=== PATIENT | male | born 1990 | race American Indian/Alaskan Native ===

== ENCOUNTER 2016-12-02 07:37 | Emergency (ER) | payer MEDICAID, OTHER ==
[2016-12-02 07:53] VITALS: RESP 18; TEMP 98
--- NOTE | 2016-12-02 09:04 | C.PDOC ---
History Of Present Illness 25-year-old male, presents to the emergency department with complaints of watery eyes, runny nose and sore throat for the past two days. States symptoms consistent with seasonal allergies. Denies nausea/vomiting, fevers, chills or any other associated symptoms. No other complaints at this time. Time Seen by Provider: 12/02/16 08:02 Chief Complaint (Nursing): ENT Problem History Per: Patient History/Exam Limitations: no limitations Past Medical History Reviewed: Historical Data, Nursing Documentation, Vital Signs Vital Signs: Last Vital Signs Temp 98.0 F 12/02/16 07:51 Pulse 78 12/02/16 09:26 Resp 18 12/02/16 09:26 BP 112/72 12/02/16 09:26 Pulse Ox 97 12/02/16 09:26 - Medical History PMH: Asthma Surgical History: Appendectomy - [facility] Procedures REPAIR ABDOMINAL WALL, PERCUTANEOUS ENDOSCOPIC APPROACH (07/17/16) RESECTION OF APPENDIX, PERCUTANEOUS ENDOSCOPIC APPROACH (07/17/16) Family History: States: Unknown Family Hx - Social History Hx Alcohol Use: Yes (occationally) Hx Substance Use: No - Immunization History Hx Tetanus Toxoid Vaccination: Yes Hx Influenza Vaccination: No Hx Pneumococcal Vaccination: No Review Of Systems Except As Marked, All Systems Reviewed And Found Negative. Constitutional: Negative for: Fever, Chills Eyes: Negative for: Vision Change ENT: Positive for: Nose Discharge, Throat Pain Respiratory: Negative for: Cough, Shortness of Breath Gastrointestinal: Negative for: Vomiting Skin: Negative for: Rash Neurological: Negative for: Weakness, Numbness, Headache, Dizziness Physical Exam - Physical Exam Appears: Non-toxic, No Acute Distress Skin: Warm, Dry, No Rash Head: Atraumatic, Normacephalic Eye(s): bilateral: Normal Inspection, PERRL Nose: Normal Oral Mucosa: Moist Lips: Normal Appearing Neck: Normal ROM Chest: Symmetrical Cardiovascular: Rhythm Regular ED Course And Treatment O2 Sat by Pulse Oximetry: 95 Disposition - Disposition Referrals: [facility] at [facility] [Outside] Disposition: HOME/ ROUTINE Disposition Time: 09:00 Condition: STABLE Additional Instructions: Follow up in Clinic within 1-2 days. Return to ED if feel worse. Prescriptions: Ketotifen Fumarate [Alaway 10 ml] 1 drop OU Q8 #10 ml Fexofenadine HCl [JanethNf] 180 mg PO DAILY #20 tab Fluticasone Nasal [Flonase] 1 spr NS BID #1 spr Pseudoephedrine HCl [Sudafed 12-Hour] 120 mg PO Q12 #10 tablet.er Instructions: Allergic Rhinitis (ED) Forms: Work Excuse - Clinical Impression Clinical Impression: Hay fever - Scribe Statement The provider has reviewed the documentation as recorded by the Carol Yates All medical record entries made by the Mateusziblinda were at my direction and personally dictated by me. I have reviewed the chart and agree that the record accurately reflects my personal performance of the history, physical exam, medical decision making, and the department course for this patient. I have also personally directed, reviewed, and agree with the discharge instructions and disposition.
[2016-12-02 09:27] VITALS: BP 112/72; PULSE 78
[2016-12-02 17:49] VITALS: O2SAT 95
== END 2016-12-02 09:27 | disposition home or self-care (01) ==
LOC: C.ER 07:37
DX: J30.1 Allergic rhinitis due to pollen (principal)

== ENCOUNTER 2017-10-16 13:17 | Emergency (ER) | payer MEDICAID, OTHER ==
[2017-10-16 13:22] VITALS: BP 151/83; PULSE 69; RESP 20; TEMP 98.5; O2SAT 96
[2017-10-16] MEDS ORDERED: cefTRIAXone 250 MG, Water For Injection 20 ML IM ONE (13:37)
--- NOTE | 2017-10-16 13:40 | C.PDOC ---
History Of Present Illness 43 year old male presents to the ED complaining of urethral discharge, onset this morning. He notes pus-like residue seen on his underwear. Patient admits he engaged in high risk homosexual relations 1 week ago without protection. No prior history of HIV. Denies any penile lesions, dysuria, or urinary frequency. Time Seen by Provider: 10/16/17 13:34 Chief Complaint (Nursing): Male Genitourinary History Per: Patient History/Exam Limitations: no limitations Onset/Duration Of Symptoms: Days (x1) Current Symptoms Are (Timing): Still Present Past Medical History Reviewed: Historical Data, Nursing Documentation, Vital Signs Vital Signs: Last Vital Signs Temp 98.5 F 10/16/17 13:20 Pulse 69 10/16/17 13:20 Resp 20 10/16/17 13:20 BP 151/83 H 10/16/17 13:20 Pulse Ox 96 10/16/17 13:40 - Medical History PMH: Asthma Surgical History: Appendectomy (2017) - [facility] Procedures REPAIR ABDOMINAL WALL, PERCUTANEOUS ENDOSCOPIC APPROACH (07/17/16) RESECTION OF APPENDIX, PERCUTANEOUS ENDOSCOPIC APPROACH (07/17/16) Family History: States: Unknown Family Hx - Social History Hx Alcohol Use: Yes (occationally) Hx Substance Use: No - Immunization History Hx Tetanus Toxoid Vaccination: Yes Hx Influenza Vaccination: No Hx Pneumococcal Vaccination: No Review Of Systems Except As Marked, All Systems Reviewed And Found Negative. Constitutional: Negative for: Fever Gastrointestinal: Negative for: Abdominal Pain Genitourinary: Positive for: Penile Discharge. Negative for: Dysuria, Frequency , Rash, Penile Pain Physical Exam - Physical Exam Appears: Non-toxic, No Acute Distress, Other (Large black male) Skin: Normal Color, Warm, Dry Head: Atraumatic, Normacephalic Eye(s): bilateral: Normal Inspection, PERRL, EOMI Nose: Normal Oral Mucosa: Moist Neck: Normal ROM, Supple Chest: Symmetrical Cardiovascular: Rhythm Regular, No Murmur Respiratory: Normal Breath Sounds, No Accessory Muscle Use Gastrointestinal/Abdominal: Soft, No Tenderness, No Distention Male Genital: Normal Inspection, No Inguinal Tenderness (or lymphadenopathy), Other (Scant urethral discharge. No penile lesions) Extremity: Bilateral: Atraumatic, Normal ROM Neurological/Psych: Oriented x3, Normal Speech ED Course And Treatment O2 Sat by Pulse Oximetry: 96 (RA) Pulse Ox Interpretation: Normal Medical Decision Making Medical Decision Making: Impression: uretheral d/c and high-risk homosexual exposure 1 wk ago Plan: Will treat empirically with Rocephin 250 IM and Azithro 1000 mg PO Refer to STD clinic for further outpatient STD eval Disposition Doctor Will See Patient In The: Office Counseled Patient/Family Regarding: Studies Performed, Diagnosis - Disposition Referrals: [facility] [Outside] [facility] [Outside] Disposition: HOME/ ROUTINE Disposition Time: 13:40 Condition: GOOD Additional Instructions: you were treated w Rocephin 250 mg IM and Azithromycin 1000 mg PO- empiric treatment for GC/Chlamydia No sex for 1 week Have your sex partner(s) checked for STD's- Follow-up in our outpatient STD Clinic @ [facility] for further testing /eval for HIV/Hepatitis/Syphilis Instructions: Chlamydia and Gonorrhea Forms: [facility] (Greek) - POA Present On Arrival: None - Clinical Impression Clinical Impression: Urethral discharge in male - Scribe Statement The provider has reviewed the documentation as recorded by the Carol Handy Provider Attestation: All medical record entries made by the Carol were at my direction and personally dictated by me. I have reviewed the chart and agree that the record accurately reflects my personal performance of the history, physical exam, medical decision making, and the department course for this patient. I have also personally directed, reviewed, and agree with the discharge instructions and disposition.
[2017-10-16] MEDS ORDERED: cefTRIAXone (Rocephin) 250 mg Inj IM ONE (14:00)
== END 2017-10-16 14:12 | disposition home or self-care (01) ==
LOC: C.ER 13:17
DX: R36.9 Urethral discharge, unspecified (principal)
CPT/HCPCS: 87491; 87591; 96372; 99283; J0696

== ENCOUNTER 2017-10-29 17:43 | Emergency (ER) | payer OTHER ==
[2017-10-29 18:02] VITALS: BP 135/78; PULSE 74; RESP 18; TEMP 97.7; O2SAT 97
--- NOTE | 2017-10-29 19:10 | C.PDOC ---
History Of Present Illness 26 y/o male c/o intermittent episodes of dizziness and lightheadedness and 1-2 episodes per day of diarrhea x 2 wks. Pt states that he was seen in [facility] 2 weeks ago and he was treated for sti. Pt thinks that his symptoms are side effects of the medicines he was given for STI. He is eating and drinking normally. Pt denies fever, chills, CP, and SOB. Time Seen by Provider: 10/29/17 18:36 Chief Complaint (Nursing): Allergic Reaction History Per: Patient History/Exam Limitations: no limitations Onset/Duration Of Symptoms: Days Current Symptoms Are (Timing): Still Present Severity: Moderate Past Medical History Reviewed: Historical Data, Nursing Documentation, Vital Signs Vital Signs: Last Vital Signs Temp 97.7 F 10/29/17 17:58 Pulse 74 10/29/17 17:58 Resp 18 10/29/17 17:58 BP 135/78 10/29/17 17:58 Pulse Ox 97 10/29/17 19:27 - Medical History PMH: Asthma Surgical History: Appendectomy (2017) - [facility] Procedures REPAIR ABDOMINAL WALL, PERCUTANEOUS ENDOSCOPIC APPROACH (07/17/16) RESECTION OF APPENDIX, PERCUTANEOUS ENDOSCOPIC APPROACH (07/17/16) Family History: States: No Known Family Hx - Social History Hx Alcohol Use: Yes (occationally) Hx Substance Use: No - Immunization History Hx Tetanus Toxoid Vaccination: Yes Hx Influenza Vaccination: No Hx Pneumococcal Vaccination: No Review Of Systems Constitutional: Negative for: Fever, Chills Cardiovascular: Negative for: Chest Pain Respiratory: Negative for: Cough, Shortness of Breath Gastrointestinal: Positive for: Diarrhea Neurological: Positive for: Dizziness Physical Exam - Physical Exam Appears: Non-toxic, No Acute Distress Skin: Warm, Dry Head: Atraumatic, Normacephalic Eye(s): bilateral: Normal Inspection Ear(s): Bilateral: Normal Nose: Normal Oral Mucosa: Moist Throat: Normal, No Erythema, No Exudate Neck: Supple Chest: Symmetrical Cardiovascular: Rhythm Regular Respiratory: Normal Breath Sounds, No Rales, No Rhonchi, No Wheezing Gastrointestinal/Abdominal: Soft, No Tenderness Extremity: Normal ROM Neurological/Psych: Oriented x3, Normal Speech, Normal Cranial Nerves, Normal Motor, Normal Sensation, Other (normal TETE, no pronator drift) Gait: Steady (heel to toe) ED Course And Treatment O2 Sat by Pulse Oximetry: 97 (RA) Pulse Ox Interpretation: Normal Medical Decision Making Medical Decision Making: pt with intermittent dizzy/lightheaded since being medicated in ED on for sti, no clear associated factors to episodes of dizziness. advised to keep diary. f/u med clinic Disposition Counseled Patient/Family Regarding: Diagnosis, Need For Followup - Disposition Referrals: [facility] at [facility] [Outside] Disposition: HOME/ ROUTINE Disposition Time: 19:25 Condition: GOOD Additional Instructions: Please follow up in medical clinic in th next week. Keep a diary and make notes about circumstances when you feel dizzy/lightheaded. Return to ED for any worse symptoms. Decrease fiber in diet while you have loose stools. Forms: [facility] (Botswanan), General Discharge Instructions - Clinical Impression Clinical Impression: Light-headed feeling, Diarrhea - PA / UNDERWEAR WELTER / Resident Statement MD/DO has reviewed & agrees with the documentation as recorded. - Scribe Statement The provider has reviewed the documentation as recorded by the Carol Pizarro Provider Attestation All medical record entries made by the Mateuszibe were at my direction and personally dictated by me. I have reviewed the chart and agree that the record accurately reflects my personal performance of the history, physical exam, medical decision making, and the department course for this patient. I have also personally directed, reviewed, and agree with the discharge instructions and disposition.
== END 2017-10-29 19:35 | disposition home or self-care (01) ==
LOC: C.ER 17:43
DX: R42 Dizziness and giddiness (principal); R19.7 Diarrhea, unspecified

== ENCOUNTER 2018-11-28 06:31 | Emergency (ER) | payer SELFPAY ==
[2018-11-28 06:41] VITALS: BP 126/73; PULSE 96; RESP 20; TEMP 99.5; O2SAT 96
[2018-11-28] MEDS ORDERED: Amoxicillin-Clav 500-125 mg Tab PO ONE (06:57)
--- NOTE | 2018-11-28 07:00 | C.PDOC ---
History Of Present Illness 27-year-old male presents to the ED for evaluation of sore throat and dry cough which began 3-4 days ago. He denies fever, chills. Chief Complaint (Nursing): ENT Problem History Per: Patient History/Exam Limitations: None Onset/Duration Of Symptoms: Days (3-4) Current Symptoms Are (Timing): Still Present Past Medical History Reviewed: Historical Data, Nursing Documentation, Vital Signs Vital Signs: Last Vital Signs Temp 99.5 F 11/28/18 06:36 Pulse 96 H 11/28/18 06:36 Resp 20 11/28/18 06:36 BP 126/73 11/28/18 06:36 Pulse Ox 96 11/28/18 06:36 - Medical History PMH: Asthma Surgical History: Appendectomy (2017) - [facility] Procedures REPAIR ABDOMINAL WALL, PERCUTANEOUS ENDOSCOPIC APPROACH (07/17/16) RESECTION OF APPENDIX, PERCUTANEOUS ENDOSCOPIC APPROACH (07/17/16) Family History: States: Unknown Family Hx - Social History Hx Alcohol Use: Yes (occationally) Hx Substance Use: No - Immunization History Hx Tetanus Toxoid Vaccination: Yes Hx Influenza Vaccination: No Hx Pneumococcal Vaccination: No Review Of Systems Constitutional: Negative for: Fever, Chills ENT: Positive for: Throat Pain Respiratory: Positive for: Cough. Negative for: Sputum Physical Exam - Physical Exam Appears: Non-toxic, No Acute Distress Skin: Normal Color, Warm, Dry Head: Atraumatic, Normacephalic Eye(s): bilateral: Normal Inspection Ear(s): Bilateral: Normal Nose: Normal, No Discharge Oral Mucosa: Moist Throat: Other (congested pharynx ) Neck: Supple Lymphatic: Adenopathy (bilateral, cervical node ) Chest: Symmetrical, No Deformity, No Tenderness Cardiovascular: Rhythm Regular, No Murmur Respiratory: Normal Breath Sounds, No Rales, No Rhonchi, No Wheezing Extremity: Normal ROM, Capillary Refill (less than 2 seconds ) Neurological/Psych: Oriented x3, Normal Speech, Normal Cognition ED Course And Treatment O2 Sat by Pulse Oximetry: 96 (on RA ) Pulse Ox Interpretation: Normal Progress Note: Throat culture obtained. Amoxicillin PO given. Disposition Counseled Patient/Family Regarding: Diagnosis - Disposition Referrals: [facility] at [facility] [Outside] Disposition: HOME/ ROUTINE Disposition Time: 06:40 Condition: STABLE Prescriptions: Amoxicillin [Amoxil 500 mg Cap] 500 mg PO TID #20 cap Instructions: Strep Throat (DC) Forms: [facility] (Dominican) - POA Present On Arrival: None - Clinical Impression Clinical Impression: Acute pharyngitis - Scribe Statement The provider has reviewed the documentation as recorded by the Scribe (Gayla Gu) Provider Attestation: All medical record entries made by the Scribe were at my direction and personally dictated by me. I have reviewed the chart and agree that the record accurately reflects my personal performance of the history, physical exam, medical decision making, and the department course for this patient. I have also personally directed, reviewed, and agree with the discharge instructions and disposition.
== END 2018-11-28 07:00 | disposition home or self-care (01) ==
LOC: C.ER 06:31
DX: J02.9 Acute pharyngitis, unspecified (principal)